=== PATIENT | male | born 1960 | race Two or more races ===

== ENCOUNTER 2024-12-29 12:06 | Emergency (ER) | payer MEDICARE, MEDICAID, SELFPAY ==
[2024-12-29 12:07] VITALS: BMI 30.2
[2024-12-29 12:19] VITALS: BP 164/83; PULSE 60; RESP 16; TEMP 37; O2SAT 97
--- NOTE | 2024-12-29 12:34 | XR_ITS ---
Examination: PA lateral chest 2 views Technique: Upright PA lateral chest 2 views Exam date 9: December 29, 2024 1409 hrs. Indications: Coughing beginning 2 days ago. Findings: Normal heart size. No lobar pneumonia or pulmonary edema Intact osseous structures Impression: No lobar pneumonia or pulmonary edema
--- NOTE | 2024-12-29 13:54 | EDNOTE_ITS ---
Upper Respiratory Inf. RME/HPI General Chief Complaint: Flu Like Symptoms Stated Complaint: COUGH FOR 3 DAYS Time Seen by Provider: 12/29/24 12:33 Arrival date/time: 12/29/24 12:06 64-year-old male presents to the emergency department today for complaints of cough, congestion runny nose ongoing for the last 3 days patient reports no chest pain or shortness of breath no abdominal pain or vomiting Limitations: no limitations Related Data Home Medications ?Medication ?Instructions ?Recorded ?Confirmed lisinopril 10 mg tablet 10 mg PO QDAY 11/27/1712/28 Previous Rx's ?Medication ?Instructions ?Recorded albuterol sulfate 90 mcg/actuation 2 puff inhalation Q 6HR PRN 09/10/16 aerosol inhaler (ProAir HFA) SHORTNESS OF BREATH #1 in h omeprazole magnesium 20 mg 20 mg PO QDAY 28 days #28 t abs 11/27/17 tablet,delayed release (Prilosec OTC) lidocaine HCl 2 % mucosal solution 2 % PO BID #100 mL 12/28/17 (Lidocaine Viscous) ibuprofen 800 mg tablet 800 mg PO TID PRN pain #30 t abs 01/15/23 albuterol sulfate 90 mcg/actuation 2 puff inhalation Q 6H PRN 12/29/24 aerosol inhaler (Ventolin HFA) shortness of breath or wheezing #8.5 grams benzonatate 100 mg capsule 100 mg PO TID #14 caps 12/11 06/06 prednisone 10 mg tablet 30 mg (3 x 10 mg) PO BID 3 d ays 12/29/24 #18 tabs Allergies Allergy/AdvReac Type Severity Reaction Status Date / Time No Known Allergies Allergy Verified 12/29/24 12:08 Review of Systems Review of Systems Systems Reviewed: All systems reviewed, normal except as documented Constitutional Constitutional: Reports system reviewed and no additional complaints, except as documented, Denies fever(s) and Reports headache(s) Eyes Eyes: Reports system reviewed and no additional complaints, except as documented and Denies blurry vision ENT Ears, Nose, Mouth, and Throat: Reports system reviewed and no additional complaints, except as documented, Reports headache(s), Reports nasal congestion and Reports nasal discharge Cardiovascular Cardiovascular: Reports system reviewed and no additional complaints, except as documented, Denies chest pain and Denies dyspnea Respiratory Respiratory: Reports system reviewed and no additional complaints, except as documented, Reports chest congestion, Reports cough and Denies dyspnea Gastrointestinal Gastrointestinal: Reports system reviewed and no additional complaints, except as documented and Denies abdominal pain Integumentary/Breasts Skin/Breast: Reports system reviewed and no additional complaints, except as doc umented and Denies rash Neurologic Neurologic: Reports system reviewed and no additional complaints, except as documented, Reports as per HPI and Reports headache(s) Past Medical History Past Medical History CARDIAC: Positive Hypercholesterolemia and Hypertension; Negative Congestive Heart Failure RESPIRATORY: Negative Chronic Obstructive Pulmonary Disease (COPD) GENITOURINARY: Negative Renal Disease ENDOCRINE: Negative Diabetes Mellitus Type 1 or Diabetes Mellitus Type 2 Social History SMOKING STATUS: Never smoker ED Exam General Limitations: Present no limitations General appearance: Present alert and in no apparent distress Head Head exam: Present atraumatic, normocephalic and normal inspection Eye Eye exam: Present normal appearance, PERRL and EOMI; Absent conjunctival injection ENT ENT exam: Present normal exam, normal oropharynx and mucous membranes moist Neck Neck exam: Present normal inspection, full ROM and trachea midline Chest Chest inspection: Present normal inspection and symmetric chest wall rise Respiratory Respiratory exam: Present normal lung sounds bilaterally; Absent respiratory distress, wheezes, stridor, accessory muscle use or prolonged expiratory phase Cardiovascular Cardiovascular exam: Present regular rate, normal rhythm and normal heart sounds; Absent bradycardia or tachycardia Abdominal Exam Abdominal exam: Present soft and normal bowel sounds; Absent distention, tenderness, guarding, rebound or rigidity Extremities Exam Extremities exam: Present normal inspection and full ROM Back Exam Back exam: Present normal inspection and full ROM Neurological Exam Neurological exam: Present alert, oriented X3, CN II-XII intact, normal gait and reflexes normal; Absent motor sensory deficit Psychiatric Psychiatric exam: Present normal affect and normal mood Skin Skin exam: Present warm, dry, intact and normal color; Absent rash Course Quality Measures none Orders Category Date Time Status Bedside Influenza A&B Antigen Test NOW Care 12/29/24 12:34 Completed XR chest 2V Stat Exams 12/29/24 12:34 Completed Vital Signs Vital signs: Vital Signs Temperature 98.6 F 12/29/24 12:19 Pulse Rate 60 12/29/24 12:19 Respiratory Rate 16 12/29/24 12:19 Blood Pressure 164/83 H 12/29/24 12:19 Pulse Oximetry (%) 97 12/29/24 12:19 Oxygen Delivery Method Room Air 12/29/24 12:19 [id number] 97% room air within normal limits Upper Respiratory Infection MDM Narrative MDM Narrative:: 64-year-old male presents to the emergency department today for complaints of cough, congestion runny nose ongoing for the last 3 days patient reports no chest pain or shortness of breath no abdominal pain or vomiting On exam patient well-appearing patient does not appear ill or toxic patient does not appear to be in any acute distress patient has no difficulty breathing no retractions lungs are clear to auscultation Patient checked for flu at the chest x-ray was obtained no acute pneumonic infiltrates noted lungs are clear to auscultation Flu is negative Patient discharged home in no distress to follow-up with primary care doctor in the next 24 to 48 hours and for any worsening symptoms to return to the ER immediately Patient data External records reviewed:: [facility] previous records Clinical information provided by:: patient Social determinants that could affect healthcare access:: none Patient has the following chronic illnesses:: None How is presenting disease/condition affected by chronic disease/condition?: no chronic disease Evaluation data The following diagnostics were reviewed and interpreted by me:: lab results and radiology exam(s) Lab and/or radiology exams considered but not ordered:: Labs radiology obtained Interpretation Summary: Reviewed by me Medications / Prescriptions Medications or Prescriptions considered but not ordered:: Rx given Medication administrations:: Rx given Consultations Consultation(s) initiated? (list below): No Diagnosis Upper Respiratory Differential Diagnosis: upper respiratory infection, sinusitis and bronchitis Most likely diagnosis given after review of the tests above:: URI Admission Indicated Admission indicated?: not indicated Admission Request Was there a request for admission?: No Disposition Plan Disposition Plan: Discharge Discharge Attestation Discharge Attestation: The patient and all family members were given an opportunity to ask questions and understood the discharge instructions. Discharge instructions specifically effects, indications for sooner follow up or return to the emergency department, and the expected course of current diagnosis. Patient condition: Stable Discharge Plan Plan Patient Disposition: HOME (Self Care) Disposition Comment: Stable Prescriptions/Referrals Prescriptions/Med Rec: New prednisone 10 mg tablet 30 mg PO BID 3 Days Qty: 18 0RF benzonatate 100 mg capsule 100 mg PO TID Qty: 14 0RF albuterol sulfate [Ventolin HFA] 90 mcg/actuation HFA aerosol inhaler 2 puff inhalation Q6H PRN (Reason: shortness of breath or wheezing) Qty: 8.5 0RF No Action albuterol sulfate [ProAir HFA] 8.5 GM HFA aerosol inhaler 2 puff Inhalation Q6HR PRN (Reason: SHORTNESS OF BREATH) Qty: 1 0RF lisinopril 10 mg Tablet 10 mg PO QDAY omeprazole magnesium [Prilosec OTC] 20 mg tablet,delayed release (DR/EC) 20 mg PO QDAY 28 Days Qty: 28 0RF lidocaine HCl [Lidocaine Viscous] 2 % solution 2 % PO BID Qty: 100 0RF ibuprofen 800 mg tablet 800 mg PO TID PRN (Reason: pain) Qty: 30 0RF Referrals: Jesús Diaz MD [Primary Care Provider] - 12/31/24 Problem List Clinical Impression: Upper respiratory infection Patient/Caregiver Discharge Instructions Education Materials: ED URI, Viral, No Abx (Adult) Additional Instructions: Please follow up with your primary care doctor in the next 24-48hrs for any worsening symptoms return here immediately Print Language: Palestinian Stand Alone Forms: Valentina Award Info., Patient Portal Info Letter PA/EDUCATION AND DEVELOPMENT MANAGER Supervising Physician PA/EDUCATION AND DEVELOPMENT MANAGER Supervising Physician: Dr Rivera
--- NOTE | 2024-12-29 14:11 | PC.NURSE ---
No answer when called for DC.
== END 2024-12-29 14:44 | disposition home or self-care (01) ==
PROVIDERS: Emergency Provider Emergency Medicine; PCP Family Medicine
DX: J06.9 Acute upper respiratory infection, unspecified (principal)
CPT/HCPCS: 71046; 87400; 99283

== ENCOUNTER 2025-05-12 12:23 | Emergency (ER) | payer MEDICARE, MEDICAID, SELFPAY ==
[2025-05-12 12:25] VITALS: BMI 32.0
[2025-05-12 12:56] VITALS: BP 168/82; PULSE 55; RESP 18; TEMP 36.9; O2SAT 97
[2025-05-12] MEDS: DiphenhydrAMINE ELIX 25 MG/10 ML UDC 50 MG PO (13:15)
[2025-05-12] MEDS: DEXAMETHASONE SOD PHOS INJ 10 MG/ML VIAL PO (13:15)
--- NOTE | 2025-05-12 16:52 | EDNOTE_ITS ---
ED Skin Abcess FB-RME/HPI General Chief complaint: Skin/Abscess/Foreign Body Stated complaint: IRRITATION L) ARM, BURNING & ITCHING Time Seen by Provider: 05/12/25 12:58 Arrival date/time: 05/12/25 12:23 Limitations: no limitations RME / HPI RME / HPI narrative: 65-year-old male with new tattoo less than a week ago. States now having itching and burning to left anterior forearm. No fever. History of diabetes. No history of hep C. Able to move arm but just above the tattoo is having significant itching and redness. Related Data Home Medications ?Medication ?Instructions ?Recorded ?Confirmed lisinopril 10 mg tablet 10 mg PO QDAY 11/27/1712/28 Previous Rx's ?Medication ?Instructions ?Recorded albuterol sulfate 90 mcg/actuation 2 puff inhalation Q 6HR PRN 09/10/16 aerosol inhaler (ProAir HFA) SHORTNESS OF BREATH #1 in h omeprazole magnesium 20 mg 20 mg PO QDAY 28 days #28 t abs 11/27/17 tablet,delayed release (Prilosec OTC) lidocaine HCl 2 % mucosal solution 2 % PO BID #100 mL 12/28/17 (Lidocaine Viscous) ibuprofen 800 mg tablet 800 mg PO TID PRN pain #30 t abs 01/15/23 albuterol sulfate 90 mcg/actuation 2 puff inhalation Q 6H PRN 12/29/24 aerosol inhaler (Ventolin HFA) shortness of breath or wheezing #8.5 grams benzonatate 100 mg capsule 100 mg PO TID #14 caps 12/11 06/06 diphenhydramine HCl 25 mg capsule 50 mg (2 x 25 mg) PO Q6H PRN 05/12/25 (Benadryl) allergic reaction #10 caps famotidine 40 mg tablet (Pepcid) 40 mg PO QDAY #14 tab s 05/12/25 Allergies Allergy/AdvReac Type Severity Reaction Status Date / Time No Known Allergies Allergy Verified 05/12/25 12:27 Review of Systems Review of Systems Systems Reviewed: All systems reviewed, normal except as documented Constitutional Constitutional: Denies fever(s) Musculoskeletal Musculoskeletal: Reports as per HPI Integumentary/Breasts Skin/Breast: Reports as per HPI ED Exam General Limitations: Present no limitations General appearance: Present alert and in no apparent distress Eye Eye exam: Present normal appearance, PERRL and EOMI Respiratory Respiratory exam: Present normal lung sounds bilaterally Cardiovascular Cardiovascular exam: Present regular rate, normal rhythm and normal heart sounds Abdominal Exam Abdominal exam: Present soft and normal bowel sounds Extremities Exam Extremities exam: Present normal inspection and full ROM Back Exam Back exam: Present normal inspection and full ROM Skin Skin exam: Present other (Left anterior forearm with tattoo above tattoo with blanching erythematous rash consistent with allergic reaction) Course Quality Measures none Orders Category Date Time Status Dexamethasone Inj [Decadron Inj] Med 05/12/25 13:10 Discontinued 10 mg PO X1 ONE DiphenhydrAMINE [Benadryl] Med 05/12/25 13:10 Discontinued 50 mg PO X1 ONE Vital Signs Vital signs: Vital Signs Temperature 98.4 F 05/12/25 12:56 Pulse Rate 55 L 05/12/25 12:56 Respiratory Rate 18 05/12/25 12:56 Blood Pressure 168/82 H 05/12/25 12:56 Pulse Oximetry (%) 97 05/12/25 12:56 Oxygen Delivery Method Room Air 05/12/25 12:56 Skin / Abscess / Foreign Body Patient data External records reviewed:: [facility] previous records Clinical information provided by:: patient Social determinants that could affect healthcare access:: other (specify) Patient has the following chronic illnesses:: Diabetes and new tattoo How is presenting disease/condition affected by chronic disease/condition?: exacerbated by Evaluation data The following diagnostics were reviewed and interpreted by me:: other (specify) (None) Lab and/or radiology exams considered but not ordered:: Imaging or labs are not warranted at this time Interpretation Summary: None to review this is a diagnosis of clinical exam Medications / Prescriptions Medications or Prescriptions considered but not ordered:: Antibiotics were considered however appears to be allergic reaction Medication administrations:: Medication Administration History Discontinued Medications Dexamethasone Sodium Phosphate (Dexamethasone Sod Phos Inj 10 Mg/Ml Vial) 10 mg PO X1 ONE Stop: 05/12/25 13:11 Last Admin: 05/12/25 13:15 Dose: 10 mg Documented By: FIDELINA Diphenhydramine HCl (Diphenhydramine Elix 25 Mg/10 Ml Udc) 50 mg PO X1 ONE Stop: 05/12/25 13:11 Last Admin: 05/12/25 13:15 Dose: 50 mg Documented By: FIDELINA See above Consultations Consultation(s) initiated? (list below): No Diagnosis Skin/Abscess Differential Diagnosis: abscess of skin or subcutaneous tissue, viral exanthem, allergic reaction to drug, cellulitis, eczema, insect bites and impetigo Most likely diagnosis given after review of the tests above:: Allergic reaction to tattoo Admission Indicated Admission indicated?: not indicated Admission Request Was there a request for admission?: No Disposition Plan Disposition Plan: Discharge Discharge Attestation Discharge Attestation: The patient and all family members were given an opportunity to ask questions and understood the discharge instructions. Discharge instructions specifically effects, indications for sooner follow up or return to the emergency department, and the expected course of current diagnosis. Patient condition: Stable Discharge Plan Plan Patient Disposition: HOME (Self Care) Discharge Disposition comment: f.u with pcp in 2-3days Prescriptions/Referrals Prescriptions/Med Rec: New famotidine [Pepcid] 40 mg tablet 40 mg PO QDAY Qty: 14 0RF diphenhydramine HCl [Benadryl] 25 mg capsule 50 mg PO Q6H PRN (Reason: allergic reaction) Qty: 10 0RF No Action albuterol sulfate [ProAir HFA] 8.5 GM HFA aerosol inhaler 2 puff Inhalation Q6HR PRN (Reason: SHORTNESS OF BREATH) Qty: 1 0RF lisinopril 10 mg Tablet 10 mg PO QDAY omeprazole magnesium [Prilosec OTC] 20 mg tablet,delayed release (DR/EC) 20 mg PO QDAY 28 Days Qty: 28 0RF lidocaine HCl [Lidocaine Viscous] 2 % solution 2 % PO BID Qty: 100 0RF benzonatate 100 mg capsule 100 mg PO TID Qty: 14 0RF albuterol sulfate [Ventolin HFA] 90 mcg/actuation HFA aerosol inhaler 2 puff inhalation Q6H PRN (Reason: shortness of breath or wheezing) Qty: 8.5 0RF ibuprofen 800 mg tablet 800 mg PO TID PRN (Reason: pain) Qty: 30 0RF Problem List Clinical Impression: Allergic reaction, Tattoo reaction Patient/Caregiver Discharge Instructions Education Materials: ED Medicine Reaction: Allergic Print Language: Danish Stand Alone Forms: Valentina Award Info., Patient Portal Info Letter PA/MANAGEMENT RETAIL INTERN Supervising Physician PA/MANAGEMENT RETAIL INTERN Supervising Physician: Dr. Brown
== END 2025-05-12 13:36 | disposition home or self-care (01) ==
LOC: SERX 13:24
PROVIDERS: Emergency Provider Physician Assistant; PCP Family Medicine
DX: T78.49XA Other allergy, initial encounter (principal); X58.XXXA Exposure to other specified factors, initial encounter
CPT/HCPCS: 99283; J1100; A9270